=== PATIENT | female | born 1975 | race Caucasian/White ===

== ENCOUNTER 2018-11-03 13:10 | Emergency (ER) | payer OTHER ==
[~2018-11-03] VITALS: Ht 165.1 cm; Wt 68.0 kg
== END 2018-11-04 07:49 | disposition home or self-care (01) ==
LOC: ER 13:10
DX: K12.2 Cellulitis and abscess of mouth (principal); J06.9 Acute upper respiratory infection, unspecified; R50.9 Fever, unspecified
CPT/HCPCS: 70460; 70490; 94640; Q9965